=== PATIENT | male | born 1990 | race Caucasian/White ===

== ENCOUNTER 2021-08-02 00:33 | Day surgery (SDC) | payer OTHER, SELFPAY ==
[2021-07-23 13:48] VITALS: BMI 26.0
--- NOTE | 2021-08-02 08:37 | P.PNAN_ITS ---
Anes - Initial Pre Proc Eval Procedure: Operation Date: 08/02/21 09:30 Proposed Procedures p Esophagogastroduodenoscopy & Colonoscopy - Jann Vaerla MD Date/Time: 08/02/21 08:37 Surgeon: Jann Varela MD Pre Op Diagnosis: GI bleed Patient Data Age: 31 Gender: M Height: 1.88 m Weight: 92 kg Allergies Allergy/AdvReac Type Severity Reaction Status Date / Time No Known Allergies Allergy Verified 08/02/21 08:39 Home Medications Medication Instructions Recorded Confirmed Type finasteride 1 mg PO DAILY 07/23/21 07/23/21 History zolpidem 10 mg PO PRN 07/23/21 07/23/21 History Patient hx anesthesia problems: none Family hx anesthesia problems: none Results Review: All pre-operative results and documents have been reviewed as part of the pre-operative evaluation. [facility] Past Medical History Medical History (Updated 08/02/21 @ 08:39 by Florian Trejo MD) Overweight Social History Social History Smoking status: Former smoker Tobacco type: cigarettes Alcohol intake: current Drinks per week: 3 Living arrangements: alone Spiritual care concerns: No Anes - Eval Final PreProcedure Day of Procedure 08/02/21 08:37 Patient weight: overweight Heart: regular rate and rhythm Lungs: clear to auscultation Airway: Mallampati scale class II Neurological: alert and oriented Last oral intake: >/= 8 hours ASA classification: II Emergent: no Anesthetic plan: proceed Anesthesia type and monitoring: general GIVS and standard monitoring Results Review: All pre-operative results and documents have been reviewed as part of the pre-operative evaluation. Informed Consent: The patient's anesthetic plan and its attendant risks and benefits were discussed with the patient/family/POA. Questions were solicited and answers provided to the satisfaction of the patient/family/POA.
[2021-08-02 08:40] VITALS: BP 139/97; PULSE 55; RESP 16; TEMP 36.2; O2SAT 97; BMI 27.4
[2021-08-02] MEDS: LACTATED RINGERS 1,000 ML 150 ML IV CONT (08:54)
--- NOTE | 2021-08-02 08:58 | PM.HPGS ---
History of Present Illness History of Present Illness Consent: Risks, benefits, and alternatives have been discussed and questions answered. Patient agrees to proceed with procedure. Chief complaint: GI bleed Narrative: Bang Mejia is a 31 year old male with diarrhea for 2 years and also noted blood in stools, never had scopes. Not taking any meds for GI symptoms. Review of Systems Constitutional: Constitutional: Denies headache(s) and Denies weakness Eyes: Eyes: Denies blurry vision ENT: Reports Normal hearing present, Denies headache(s) and Denies neck pain Cardiovascular: Cardiovascular: Denies chest pain and Denies dyspnea Respiratory: Respiratory: Denies dyspnea Gastrointestinal: Gastrointestinal: Reports no additional gastrointestinal complaints Genitourinary: Genitourinary: Denies dysuria Musculoskeletal: Musculoskeletal: Denies neck pain Integumentary/Breasts: Skin/Breast: Denies dry skin Neurologic: Reports Normal hearing present, Denies headache(s) and Denies weakness Psychiatric: Psychiatric: Denies anxiety Endocrine: Endocrine: Denies change in body appearance Hematologic/Lymphatic: Hematologic/Lymphatic: Denies easy bleeding Allergic/Immunologic: Allergic/Immunologic: Denies urticaria PMFSH Past Medical History Medical History (Updated 08/02/21 @ 08:59 by Jann Varela MD) Blood in stool Chronic diarrhea Overweight Social History Social History Smoking status: Former smoker Tobacco type: cigarettes Alcohol intake: current Drinks per week: 3 Living arrangements: alone Spiritual care concerns: No Meds Home Medications and Allergies Home Medications Medication Instructions Recorded Confirmed Type finasteride 1 mg PO DAILY 07/23/21 07/23/21 History zolpidem 10 mg PO PRN 07/23/21 07/23/21 History Allergies Allergy/AdvReac Type Severity Reaction Status Date / Time No Known Allergies Allergy Verified 08/02/21 08:39 Vital Signs Vital Signs - 24 hr 08/02/21 08:40 Temperature 97.2 F L Pulse Rate 55 L Respiratory Rate 16 Blood Pressure 139/97 H Pulse Oximetry 97 Exam Const: General: comfortable and no acute distress HENMT: General nose exam: Normal nares present Eyes: General: appearance normal, both eyes and all related structures Neck: Neck: no JVD Resp: Auscultation: clear to auscultation bilaterally Cardio: Rate: regular rate Rhythm: regular rhythm GI: Inspection: non-distended GI Palp: Yes Soft to palpation Skin: General skin exam: normal color Neuro: General: gait normal Speech: normal speech Extrem: General: normal to inspection Psych: Mental Status: mental status grossly normal Assessment and Plan Assessment and plan (1) Chronic diarrhea: Code(s): K52.9 - Noninfective gastroenteritis and colitis, unspecified Status: Acute Assessment and Plan: colonoscopy with random bx, also egd to assess for celiac (2) Blood in stool: Code(s): K92.1 - Melena Status: Acute Assessment and Plan: colonoscopy
--- NOTE | 2021-08-02 09:16 | SUR.OPER ---
EGD END AT 910 AND COLONOSCOPY START AT 16.
[2021-08-02 09:27] VITALS: BP 110/64; PULSE 79; RESP 21; O2SAT 96
[2021-08-02 09:37] VITALS: BP 105/61; PULSE 73; RESP 19; O2SAT 96
[2021-08-02 09:47] VITALS: BP 130/91; PULSE 66; RESP 17; O2SAT 97
== END 2021-08-02 10:06 | disposition home or self-care (01) ==
PROVIDERS: PCP Emergency Medicine; Visit Provider Internal Medicine Gastroenterology
PROC: 0DJ08ZZ Inspection of Upper Intestinal Tract, Via Natural or Artificial Opening Endoscopic (ICD-10-PCS; CPT 43235; principal; 2021-08-02 09:30)
DX: R19.7 Diarrhea, unspecified (principal); K92.1 Melena; K64.8 Other hemorrhoids; Z87.891 Personal history of nicotine dependence
CPT/HCPCS: 45380; 43239; 88305; J2704; J7120